=== PATIENT | female | born 1965 | race Caucasian/White ===

== ENCOUNTER 2025-07-12 10:31 | Day surgery (SDC) | payer MEDICAID, SELFPAY ==
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
--- OUTSIDE RECORDS SUMMARY | 2025-07-11 06:45 | XMS RPT_ITS | CCD ---
Author Organization [facility] Care Team Providers Care Wink Cutter Operator Name Role Phone SABINA GREGG, DR LOLY Castelan Primary Care Physician SABINA GREGG, DR LOLY Castelan Attending Unavail able SABINA GREGG, DR LOLY Castelan Primary Care Unavail able SABINA GREGG, DR LOLY Castelan Attending Unavail able SABINA GREGG, DR LOLY Castelan Primary Care Unavail able SABINA GREGG, DR LOLY Castelan Attending Unavail able SABINA GREGG, DR LOLY Castelan Primary Care Unavail able JOEY RODRIGUES, VERNA Holcomb Attending Unavailable JOEY RODRIGUES, VERNA Holcomb Primary Care Unavailable JOEY RODRIGUES, VERNA Holcomb Attending Unavailable JOEY RODRIGUES, VERNA Holcomb Primary Care Unavailable JOEY RODRIGUES, VERNA Holcomb Primary Care Physician JOEY RODRIGUES, VERNA Holcomb Primary Care Unavailable CB GREGG, DR LEIDA Parks Attending Unavailable JOEY RODRIGUES, VERNA Holcomb Primary Care Unavailable JOEY RODRIGUES, VERNA Holcomb Attending Unavailable Ammon Huertas Referring Unavailable Ammon Huertas Attending Unavailable LILLIAM LARSEN Primary Care Unavailable Allergies Allergy Classification Reported Allergen(s) Allergy Type Date of Onset Reaction(s) Facility (1 source) Cephalexin; Translations: [cephalexin] Drug Allergy Nausea (finding) [facility] (1 source) moxifloxacin; Translations: [moxifloxacin] Drug Allergy Nausea and vomiting (disorder) [facility] (1 source) Cephalexin Drug Allergy 5 [facility] (1 source) moxifloxacin Drug Allergy 5 [facility] Medications Current Medications Medication Drug Class(es) Dates Sig (Normalized) Sig (Original) irbesartan 75 mg oral tablet (1 source) Angiotensin 2 Receptor Griselda Start: 04-18-2025 irbesartan 75 mg oral tablet Dose : 75 mg = 1 tab(s), Oral, qDay, # 90 tab(s), 2 Refill(s), Pharmacy: [facility] #30, kg, 11/01/24 11:34:00 EST, Dosing Weight Start Date: 04/18/25 Status: Ordered Medication Dispense Status: Completed Quantity: 90.0 Unit: tab(s) Total Allowed Fills: 3 Fills Dispensed: 0 Magnesium glycinate (1 source) Start: 04-17-2025 magnesium glycinate 200 mg oral tablet Dose : 200 mg = 1 tab(s), Oral, qDayPC, # 180 tab(s), 0 Refill(s) Start Date: 04/17/25 Status: Ordered Medication Dispense Status: Completed Quantity: 180.0 Unit: tab(s) Total Allowed Fills: 1 Fills Dispensed: 0 Misc Medication (1 source) Start: 04-17-2025 Misc Medication 0 Refill(s), 99 Start Date: 04/17/25 Status: Ordered Medication Dispense Status: Completed Total Allowed Fills: 1 Fills Dispensed: 0 Vitamin C 1000 mg oral tablet (1 source) Start: 04-17-2025 Vitamin C 1000 mg oral tablet Dose : 1,000 mg = 1 tab(s), Oral, qDay, # 30 tab(s), 0 Refill(s) Start Date: 04/17/25 Status: Ordered Medication Dispense Status: Completed Quantity: 30.0 Unit: tab(s) Total Allowed Fills: 1 Fills Dispensed: 0 Vitamin D3 50 mcg (2000 intl units) oral capsule (1 source) Start: 04-17-2025 Vitamin D3 50 mcg (2000 intl units) oral capsule Dose : 50 mcg = 1 cap(s), Oral, qDay, # 60 cap(s), 0 Refill(s) Start Date: 04/17/25 Status: Ordered Medication Dispense Status: Completed Quantity: 60.0 Unit: cap(s) Total Allowed Fills: 1 Fills Dispensed: 0 Problems Problem Classification Problem Date Documented Date Episodic/Chronic Esophageal disorders (1 source) Gastroesophageal reflux disease without esophagitis 04-17-2025 Chronic Essential hypertension (3 sources) Essential hypertension; Translations: [Essential (primary) hypertension] Onset: 04-17-2025 04-17-2025 Chronic Fracture of lower limb (2 sources) Closed fracture of shaft of fibula; Translations: [Unspecified fracture of shaft of unspecified fibula, initial encounter for closed fracture] Onset: 07-03-2025 Episodic Other aftercare (2 sources) 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; 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] Onset: 04-05-2024 Episodic Other non-traumatic joint disorders (1 source) Disorder of hand 04-17-2025 Episodic Other screening for suspected conditions (not mental disorders or infectious disease) (6 sources) Encounter for screening for lipoid disorders; Translations: [Encounter for screening for diabetes mellitus] Onset: 04-05-2024 Episodic Other upper respiratory disease (1 source) Seasonal allergy 04-17-2025 Chronic Unclassified (5 sources) Patient encounter status 04-17-2025 Results Test Name Value Interpretation Reference Range Facil ity XR ANKLE MINIMUM 3 VIEWS RIG HTon 07-03-2025 XR ANKLE MINIMUM 3 VIEWS RIGHT ORIGINAL HISTORY: Pain COMPARISON: No FINDINGS: There is a mildly displaced fracture of the distal fibula. Alignment is within normal limits. Joint spaces are maintained. There is lateral soft tissue swelling. IMPRESSION: Distal fibula fracture. Interpreted by: Stevo Gonsalez MD Preliminary Report By: Stevo Gonsalez MD Electronically signed By Stevo Gonsalez MD Dictated Date: 07/03/2025 11:03:18 AM Prelim Date: 07/03/2025 11:03:54 AM Sign Date: 07/03/2025 11:03:54 AM Ordering Provider: LEIDA Figueredo [facility] MA MAMMOGRAM SCREENING BILAT ERAL W/TOMOon 06-12-2025 MA MAMMOGRAM SCREENING BILATERAL W/MICHELLE ORIGINAL FROM: [address] [address] PROCEDURE FOR: NATACHA CADE [address] [place] [address] Home: PID#: [id number] Exam#: [id number] : 1965 Age: 60 TO: VERNA COOK M.D. [address] [place] [address] EXAMINATION: SCREENING DIGITAL BILATERAL MAMMOGRAM WITH TOMOSYNTHESIS, 06/12/2025 8:55 am TECHNIQUE: Screening mammography of the bilateral breasts was performed with tomosynthesis. 2D standard and 3D tomosynthesis combination imaging performed through both breasts in the MLO and CC projection. Computer aided detection was utilized in the interpretation of this exam. COMPARISON: 05/01/2024 HISTORY: Breast cancer screening. FINDINGS: BREAST DENSITY: The breasts are almost entirely fatty. There are no significant masses or calcifications. IMPRESSION: No mammographic evidence of malignancy. Continued screening with annual mammograms is recommended. Melvin zick risk calculations, generated with the history provided, report this patient's 10 year risk and lifetime risk for developing breast cancer at 2.1% and 5.9%, respectively. Based on this assessment tool, if the patient's calculated lifetime risk is below 20%, then the patient is considered at average risk for developing breast cancer. If the patient's calculated lifetime risk is at or above 20%, then the patient is considered high risk for developing breast cancer and may be a candidate for supplemental breast MRI screening in addition to annual mammographic screening per the [employer]. BIRADS: BI-RADS: 1: Negative RECALL: 1 year screening RECALL TYPE: mammo LETTER SENT: Normal BI-RADS 1 and 2 Interpreted by: Loly Phelps MD Preliminary Report By: Loly Phelps MD Electronically signed By Loly Phelps MD Dictated Date: 06/12/2025 2:59:01 PM Prelim Date: 06/12/2025 3:00:44 PM Sign Date: 06/12/2025 3:00:44 PM Ordering Provider: VERNA COOK Negotiator Sales: TARIQ BILLS(R)(M) letter sent: Normal BI-RADS 1 and 2 Mammogram BI-RADS: 1 Negative Normal [facility] .Auto Diffon 04-17-2025 Basophil, Absolute 0.0 10 3/mcL Normal 0.0-0.3 [facility] Comment on above: Performed By: #### C BC, A1C, CMP, ADIFF, ANEU, LIPID, GFR #### [address] [address] Basophils/100 WBC (Bld) 0.8 % Normal 0.0-2.5 [facility] Comment on above: Performed By: #### C BC, A1C, CMP, ADIFF, ANEU, LIPID, GFR #### [address] [address] Eosinophil, Absolute 0.1 10 3/mcL Normal 0.0-0.7 [facility] Comment on above: Performed By: #### C BC, A1C, CMP, ADIFF, ANEU, LIPID, GFR #### [address] [address] Eosinophils/100 WBC (Bld) 1.5 % Normal 0.0-6.0 [facility] Comment on above: Performed By: #### C BC, A1C, CMP, ADIFF, ANEU, LIPID, GFR #### [address] [address] Lymphocyte, Absolute 1.8 10 3/mcL Normal 0.9-4.3 [facility] Comment on above: Performed By: #### C BC, A1C, CMP, ADIFF, ANEU, LIPID, GFR #### [address] [address] Lymphocytes/100 WBC (Bld) 30.9 % Normal 20.0-40.0 [facility] Comment on above: Performed By: #### C BC, A1C, CMP, ADIFF, ANEU, LIPID, GFR #### [address] [address] Monocyte, Absolute 0.4 10 3/mcL Normal 0.1-1.4 [facility] Comment on above: Performed By: #### C BC, A1C, CMP, ADIFF, ANEU, LIPID, GFR #### [address] [address] Monocytes/100 WBC (Bld) 7.1 % Normal 2.0-13.0 [facility] Comment on above: Performed By: #### C BC, A1C, CMP, ADIFF, ANEU, LIPID, GFR #### [address] [address] Neutrophils/100 WBC (Bld) 59.7 % Normal 50.0-75.0 [facility] Comment on above: Performed By: #### C BC, A1C, CMP, ADIFF, ANEU, LIPID, GFR #### [place] [address] [place], [place] [address] .GFRon 04-17-2025 Estimated Glomerular Filtration Rate 102 ml/min/1.73sqm Normal [facility] Comment on above: Result Comment: Stages of Chronic Kidney Disease (CKD) Stage Description eGFR(ml/min/1.73 sq.m.) CKD 1 Normal kidney function or >=90 normal kindney function with possible kidney damage (ex. Proteinuria) CKD 2 Kidney damage with mild loss 60-89 of kidney function CKD 3a Mild to moderate loss of kidney 45-59 function CKD 3b Moderate to severe loss of 30-44 of kindey function CKD 4 Severe loss of kidney function 15-29 CKD 5 Kidney failure <15 Note: (go live 2024) the eGFR calculation was updated to the 2020 CKD-EPI creatinine equation without a race factor to calculate the eGFR results. Performed By: #### C BC, A1C, CMP, ADIFF, ANEU, LIPID, GFR #### [address] [address] .NEUABSon 04-17-2025 Neutrophil, Absolute 3.4 10 3/mcL Normal 2.3-8.1 [facility] Comment on above: Performed By: #### C BC, A1C, CMP, ADIFF, ANEU, LIPID, GFR #### [address] [address] A1Con 04-17-2025 Glucose [Mass/Vol] 103 mg/dL Normal [facility] Comment on above: Result Comment: Lelea mated Average Glucose calculated by equation ((28.7xA1C)-46.7) Estimated average glucose (eAG) is a calculated value from Hemoglobin A1C and is tour sales representative of the average blood glucose level in the last 2-3 month period. Normal range: less than 114 mg/dL Performed By: #### C BC, A1C, CMP, ADIFF, ANEU, LIPID, GFR #### [address] [address] HbA1c (Bld) [Mass fraction] 5.2 % Normal 4.3-6.4 [facility] Comment on above: Performed By: #### C BC, A1C, CMP, ADIFF, ANEU, LIPID, GFR #### [address] [address] CBCon 04-17-2025 Erythrocyte distribution width (RBC) [Ratio] 13.5 % Normal 11.5-15.5 [facility] Comment on above: Performed By: #### C BC, A1C, CMP, ADIFF, ANEU, LIPID, GFR #### [place] [id number] Hematocrit (Bld) [Volume fraction] 44.4 % Normal 34.0-46.0 [facility] Comment on above: Performed By: #### C BC, A1C, CMP, ADIFF, ANEU, LIPID, GFR #### [address] [address] Hgb 15.1 G/dL Normal 12.0-16.0 [facility] Comment on above: Performed By: #### C BC, A1C, CMP, ADIFF, ANEU, LIPID, GFR #### [address] [address] MCH (RBC) [Entitic mass] 30.7 pg Normal 27.0-33.0 [facility] Comment on above: Performed By: #### C BC, A1C, CMP, ADIFF, ANEU, LIPID, GFR #### [address] [address] MCHC 34.0 G/dL Normal 32.0-36.0 [facility] Comment on above: Performed By: #### C BC, A1C, CMP, ADIFF, ANEU, LIPID, GFR #### [address] [address] MCV (RBC) [Entitic vol] 90.2 fL Normal 80.0-99.0 [facility] Comment on above: Performed By: #### C BC, A1C, CMP, ADIFF, ANEU, LIPID, GFR #### [address] [address] Platelet 290 10 3/mcL Normal 150-450 [facility] Comment on above: Performed By: #### C BC, A1C, CMP, ADIFF, ANEU, LIPID, GFR #### [address] [address] Platelet mean volume (Bld) [Entitic vol] 7.0 fL Normal 6.6-10.5 [facility] Comment on above: Performed By: #### C BC, A1C, CMP, ADIFF, ANEU, LIPID, GFR #### [address] [address] RBC 4.92 10 6/mcL Normal 4.10-5.30 [facility] Comment on above: Performed By: #### C BC, A1C, CMP, ADIFF, ANEU, LIPID, GFR #### [address] [address] WBC 5.8 10 3/mcL Normal 4.5-10.8 [facility] Comment on above: Performed By: #### C BC, A1C, CMP, ADIFF, ANEU, LIPID, GFR #### [address] [address] CMPon 04-17-2025 Albumin Level 4.1 G/dL Normal 3.5-5.0 [facility] Comment on above: Performed By: #### C BC, A1C, CMP, ADIFF, ANEU, LIPID, GFR #### [address] [address] Albumin/Globulin [Mass ratio] 1.1 {ratio} Normal 1.1-2.5 [facility] Comment on above: Performed By: #### C BC, A1C, CMP, ADIFF, ANEU, LIPID, GFR #### [address] [address] ALP [Catalytic activity/Vol] 83 U/L Normal 40-135 [facility] Comment on above: Performed By: #### C BC, A1C, CMP, ADIFF, ANEU, LIPID, GFR #### [address] [address] ALT [Catalytic activity/Vol] 29 U/L Normal 14-59 [facility] Comment on above: Performed By: #### C BC, A1C, CMP, ADIFF, ANEU, LIPID, GFR #### [address] [address] AST [Catalytic activity/Vol] 18 U/L Normal 10-40 [facility] Comment on above: Performed By: #### C BC, A1C, CMP, ADIFF, ANEU, LIPID, GFR #### [address] [address] Bili Total 0.8 mg/dL Normal 0.2-1.0 [facility] Comment on above: Result Comment: Use of this assay is not recommended for patients undergoing treatment with eltrombopag due to the potential for falsely elevated results. Performed By: #### C BC, A1C, CMP, ADIFF, ANEU, LIPID, GFR #### [address] [address] BUN/Creatinine Ratio 19 ratio Normal 7-27 [facility] Comment on above: Performed By: #### C BC, A1C, CMP, ADIFF, ANEU, LIPID, GFR #### [address] [address] Calcium [Mass/Vol] 9.5 mg/dL Normal 8.4-10.2 [facility] Comment on above: Performed By: #### C BC, A1C, CMP, ADIFF, ANEU, LIPID, GFR #### [address] [address] Chloride [Moles/Vol] 103 mmol/L Normal 98-107 [facility] Comment on above: Performed By: #### C BC, A1C, CMP, ADIFF, ANEU, LIPID, GFR #### [address] [address] CO2 [Moles/Vol] 26 mmol/L Normal 22-29 [facility] Comment on above: Performed By: #### C BC, A1C, CMP, ADIFF, ANEU, LIPID, GFR #### [address] [address] Creatinine [Mass/Vol] 0.67 mg/dL Normal 0.51-0.95 [facility] Comment on above: Performed By: #### C BC, A1C, CMP, ADIFF, ANEU, LIPID, GFR #### [address] [address] Electrolyte Balance 12.0 mEq/L Normal 4.0-15.0 [facility] Comment on above: Performed By: #### C BC, A1C, CMP, ADIFF, ANEU, LIPID, GFR #### [address] [address] Globulin 3.7 G/dL Normal 2.7-4.4 [facility] Comment on above: Performed By: #### C BC, A1C, CMP, ADIFF, ANEU, LIPID, GFR #### [address] [address] Glucose [Mass/Vol] 92 mg/dL Normal 70-105 [facility] Comment on above: Performed By: #### C BC, A1C, CMP, ADIFF, ANEU, LIPID, GFR #### [address] [address] Potassium [Moles/Vol] 3.7 mmol/L Normal 3.5-5.1 [facility] Comment on above: Performed By: #### C BC, A1C, CMP, ADIFF, ANEU, LIPID, GFR #### [address] [address] Sodium [Moles/Vol] 141 mmol/L Normal 136-145 [facility] Comment on above: Performed By: #### C BC, A1C, CMP, ADIFF, ANEU, LIPID, GFR #### [address] [address] Total Protein 7.8 G/dL Normal 6.4-8.2 [facility] Comment on above: Performed By: #### C BC, A1C, CMP, ADIFF, ANEU, LIPID, GFR #### [address] [address] Urea nitrogen [Mass/Vol] 13 mg/dL Normal 7-18 [facility] Comment on above: Performed By: #### C BC, A1C, CMP, ADIFF, ANEU, LIPID, GFR #### [address] [address] LIPIDon 04-17-2025 Cholesterol [Mass/Vol] 190 mg/dL Normal 0-200 [facility] Comment on above: Result Comment: Chol esterol Reference Interval: Less than 200 Desirable 200-239 Borderline high risk 240 and above High risk Performed By: #### C BC, A1C, CMP, ADIFF, ANEU, LIPID, GFR #### [address] [address] Cholesterol in HDL [Mass/Vol] 56 mg/dL Normal 40-60 [facility] Comment on above: Performed By: #### C BC, A1C, CMP, ADIFF, ANEU, LIPID, GFR #### [address] [address] Cholesterol in LDL [Mass/Vol] 113 mg/dL Normal 0-130 [facility] Comment on above: Performed By: #### C BC, A1C, CMP, ADIFF, ANEU, LIPID, GFR #### [address] [address] Triglyceride [Mass/Vol] 106 mg/dL Normal 0-150 [facility] Comment on above: Result Comment: Trig lyceride Reference Interval: Less than 150 Normal 150-199 Borderline high risk 200-499 High risk 500 or higher Very high risk Performed By: #### C BC, A1C, CMP, ADIFF, ANEU, LIPID, GFR #### [address] [address] MA MAMMOGRAM SCREENING BILAT ERAL W/TOMOon 05-08-2024 MA MAMMOGRAM SCREENING BILATERAL W/MICHELLE ORIGINAL FROM: [place] [id number] PROCEDURE FOR: NATACHA CADE [address] [place] [address] Home: PID#: [id number] Exam#: [id number] : 1965 Age: 58 TO: LOLY MUHAMMAD DO [address] [place], [place] [address] EXAMINATION: SCREENING DIGITAL BILATERAL MAMMOGRAM WITH TOMOSYNTHESIS, 05/01/2024 9:43 am TECHNIQUE: Screening mammography of the bilateral breasts was performed with tomosynthesis. 2D standard and 3D tomosynthesis combination imaging performed through both breasts in the MLO and CC projection. Computer aided detection was utilized in the interpretation of this exam. COMPARISON: April 16, 2021, June 20, 2019 HISTORY: Breast cancer screening. FINDINGS: BREAST DENSITY: The breasts are almost entirely fatty. There is no suspicious mass, architectural distortion or microcalcification. Fibroglandular pattern is stable. IMPRESSION: No mammographic evidence of malignancy. Continued screening with annual mammograms is recommended. Tyrseth zick risk calculations, generated with the history provided, report this patient's 10 year risk and lifetime risk for developing breast cancer at 1.8% and 5.6%, respectively. Based on this assessment tool, if the patient's calculated lifetime risk is below 20%, then the patient is considered at average risk for developing breast cancer. If the patient's calculated lifetime risk is at or above 20%, then the patient is considered high risk for developing breast cancer and may be a candidate for supplemental breast MRI screening in addition to annual mammographic screening per the [employer]. BIRADS: MAMMOGRAM BI-RADS: 1: Negative RECALL: 1 year screening RECALL TYPE: mammo LETTER SENT: Normal BI-RADS 1 and 2 Interpreted by: Sepideh Vann Preliminary Report By: Sepideh Vann Electronically signed By Sepideh Vann Dictated Date: 05/08/2024 12:58:53 PM Prelim Date: 05/08/2024 1:06:21 PM Sign Date: 05/08/2024 1:06:21 PM Ordering Provider: LOLY MUHAMMAD Negotiator Sales: TARIQ BILLS(Ramon)(M) letter sent: Normal BI-RADS 1 and 2 Mammogram BI-RADS: 1 Negative Normal [facility] [place] .GFRon 04-05-2024 GFR 116 ml/min/1.73sqm Normal [facility] ([place] Comment on above: Result Comment: GFR Population mean for , Non- Americans Ages 20-29 = 116 mL/min/1.73 sq.m. Ages 30-39 = 107 mL/min/1.73 sq.m. Ages 40-49 = 99 mL/min/1.73 sq.m. Ages 50-59 = 93 mL/min/1.73 sq.m. Ages 60-69 = 85 mL/min/1.73 sq.m. Ages 70+ = 75 mL/min/1.73 sq.m. Chronic Kidney Disease: Less than 60 mL/min/1.73 square meters End Stage Renal Disease: Less than 15 mL/min/1.73 square meters Performed By: #### G FR, LIPID, CMP #### [address] [address] GFR Non- 96 ml/min/1.73sqm Normal [facility] ([place] Comment on above: Result Comment: GFR Population mean for , Non- Americans Ages 20-29 = 116 mL/min/1.73 sq.m. Ages 30-39 = 107 mL/min/1.73 sq.m. Ages 40-49 = 99 mL/min/1.73 sq.m. Ages 50-59 = 93 mL/min/1.73 sq.m. Ages 60-69 = 85 mL/min/1.73 sq.m. Ages 70+ = 75 mL/min/1.73 sq.m. Chronic Kidney Disease: Less than 60 mL/min/1.73 square meters End Stage Renal Disease: Less than 15 mL/min/1.73 square meters Performed By: #### G FR, LIPID, CMP #### [address] [address] CMPon 04-05-2024 Albumin Level 4.4 G/dL Normal 3.5-5.0 [facility] ([place]) Comment on above: Performed By: #### G FR, LIPID, CMP #### [address] [address] Albumin/Globulin [Mass ratio] 1.3 {ratio} Normal 1.1-2.5 [facility] ([place] Comment on above: Performed By: #### G FR, LIPID, CMP #### [address] [address] ALP [Catalytic activity/Vol] 81 U/L Normal 40-135 [facility] ([place] Comment on above: Performed By: #### G FR, LIPID, CMP #### [place] [id number] ALT [Catalytic activity/Vol] 29 U/L Normal 14-59 [facility] ([place] Comment on above: Performed By: #### G FR, LIPID, CMP #### [place] [id number] AST [Catalytic activity/Vol] 12 U/L Normal 10-40 [facility] ([place] Comment on above: Performed By: #### G FR, LIPID, CMP #### [place] [id number] Bili Total 0.7 mg/dL Normal 0.2-1.0 [facility] ([place] Comment on above: Result Comment: Use of this assay is not recommended for patients undergoing treatment with eltrombopag due to the potential for falsely elevated results. Performed By: #### G FR, LIPID, CMP #### [address] [address] BUN/Creatinine Ratio 23 ratio Normal 7-27 [facility] ([place] Comment on above: Performed By: #### G FR, LIPID, CMP #### [address] [address] Calcium [Mass/Vol] 9.7 mg/dL Normal 8.4-10.2 [facility] ([place]) Comment on above: Performed By: #### G FR, LIPID, CMP #### [place] [id number] Chloride [Moles/Vol] 101 mmol/L Normal 98-107 [facility] ([place] Comment on above: Performed By: #### G FR, LIPID, CMP #### [address] [address] Creatinine [Mass/Vol] 0.64 mg/dL Normal 0.55-1.02 [facility] ([place] Comment on above: Performed By: #### G FR, LIPID, CMP #### [address] [address] Electrolyte Balance 11.0 mEq/L Normal 4.0-15.0 [facility] ([place] Comment on above: Performed By: #### G FR, LIPID, CMP #### [address] [address] Globulin 3.3 G/dL Normal [facility] ([place] Comment on above: Performed By: #### G FR, LIPID, CMP #### [address] [address] Glucose [Mass/Vol] 100 mg/dL Normal 70-105 [facility] ([place] Comment on above: Performed By: #### G FR, LIPID, CMP #### [address] [address] Potassium [Moles/Vol] 4.2 mmol/L Normal 3.5-5.1 [facility] ([place] Comment on above: Performed By: #### G FR, LIPID, CMP #### [address] [address] Sodium [Moles/Vol] 140 mmol/L Normal 136-145 [facility] ([place] Comment on above: Performed By: #### G FR, LIPID, CMP #### [address] [address] Total Protein 7.7 G/dL Normal 6.4-8.2 [facility] ([place] Comment on above: Performed By: #### G FR, LIPID, CMP #### [address] [address] Urea nitrogen [Mass/Vol] 15 mg/dL Normal 7-18 [facility] ([place] Comment on above: Performed By: #### G FR, LIPID, CMP #### [address] [place] [place], [place] [address] CO2 [Moles/Vol] 28 mmol/L Normal 22-29 [facility] ([place]) Comment on above: Performed By: #### G FR, LIPID, CMP #### [address] [place] [address] [place], [place] [address] LIPIDon 04-05-2024 Cholesterol [Mass/Vol] 228 mg/dL High 0-200 [facility] ([place] Comment on above: Result Comment: Chol esterol Reference Interval: Less than 200 Desirable 200-239 Borderline high risk 240 and above High risk Performed By: #### G FR, LIPID, CMP #### [address] [address] Cholesterol in HDL [Mass/Vol] 62 mg/dL High 40-60 [facility] ([place] Comment on above: Performed By: #### G FR, LIPID, CMP #### [address] [address] Cholesterol in LDL [Mass/Vol] 139 mg/dL High 0-130 [facility] ([place] Comment on above: Performed By: #### G FR, LIPID, CMP #### [address] [address] Triglyceride [Mass/Vol] 135 mg/dL Normal 0-150 [facility] ([place] Comment on above: Result Comment: Trig lyceride Reference Interval: Less than 150 Normal 150-199 Borderline high risk 200-499 High risk 500 or higher Very high risk Performed By: #### G FR, LIPID, CMP #### [address] [place], [place] [address] SCREEN DIGITAL BREAST TOMOon 04-16-2021 SCREEN DIGITAL BREAST MICHELLE [address] [address] Name: NATACHA CADE Phys: LOLY MUHAMMAD D.O. : [birth year] Age: 55 Sex: F Acct: [id number] Loc: RAD MAMM Exam Date: 04/16/21 Status: REG CLI Radiology No.: [id number] Unit Number: [id number] Exam # Type/Exam [id number] MAMMO / SCREEN DIGITAL BREAST MICHELLE #[id number] - SCREEN DIGITAL BREAST MICHELLE BILATERAL DIGITAL SCREENING MAMMOGRAM 3D/2D WITH CAD: 04/16/2021 CLINICAL: Annual Screening. Comparison is made to exam dated: 06/20/2019 mammogram - [facility] [place]. The tissue of both breasts is predominantly fatty. Current study was also evaluated with a Computer Aided Detection (CAD) system. 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 No significant masses, calcifications, or other findings are seen in either breast. There has been no significant interval change. IMPRESSION: NEGATIVE There is no mammographic evidence of malignancy. A 1 year return mammogram is recommended.() The patient was notified of the results. Electronically signed by: Mike ding/beatriz:04/16/2021 15:13:59 Negotiator Sales(s): RT Angelica(R)(M), [facility] BI-RADS: 1 Negative REPORT SIGNATURE ON FILE Reported By: MIKE JOHNSTON D.O. << Signature on File>> Reported By: MIKE JOHNSTON D.O. Signed By: MIKE JOHNSTON D.O. Tests performed at: [address] [address] Normal Pending Sale To [facility] CBC W/DIFFon 03-31-2021 BASO ABS 0.10 K/CU MM Normal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 Instructions Last Dose Unchanged ascorbic acid (Vitamin C 1000 mg oral tablet) 1 tab(s) by mouth Once a day Unchanged cholecalciferol (Vitamin D3 50 mcg (2000 intl units) oral capsule) 1 cap by mouth Once a day Unchanged irbesartan (irbesartan 75 mg oral tablet) 1 tab(s) by mouth Once a day Unchanged magnesium glycinate (magnesium glycinate 200 mg oral tablet) 1 tab(s) by mouth Once a day after a meal Unchanged Misc Medication Please take this list to your next doctor s visit. Bring all medications you take, including over the counter medications, herbals and other supplements with you to your doctor s visit. Patients and families are reminded to discard old lists and to update any records with all medication providers or retail pharmacies. Education Materials Leg Fracture You have a break (fracture) of the leg. A fracture is treated with a splint, cast, or special boot. It will usually take at about 8 to 12 weeks for the fracture to heal, but it can take several months in some cases. If you have a severe injury, you may need surgery to fix it. Home care Follow these guidelines when caring for yourself at home: You will be given a splint, cast, boot, or other device to keep the injured area from moving. Unless you were told otherwise, use crutches or a walker. Don t put weight on the injured leg until your healthcare provider says you can do so. (You can rent crutches and a walker at many pharmacies and surgical or orthopedic supply stores.) Keep your leg elevated to reduce pain and swelling. When sleeping, put a pillow under the injured leg. When sitting, support the injured leg so it is above your waist. This is very important during the first 2 days (48 hours). Put an ice pack on the injured area. Do this for 20 minutes every 1 to 2 hours the first day for pain relief. You can make an ice pack by wrapping a plastic bag of ice cubes in a thin towel. As the ice melts, be careful that the cast, splint, or boot doesn t get wet. You can put the ice pack directly over the splint or cast. Continue using the ice pack 3 to 4 times a day for the next 2 days. Then use the ice pack as needed to ease pain and swelling. Keep the cast, splint, or boot completely dry at all times. Bathe with your cast, splint, or boot out of the water. Protect it with a large plastic bag, rubber-banded at the top end. If a boot or fiberglass cast or splint gets wet, you can dry it with a nursing program chair. You may use acetaminophen or ibuprofen to control pain, unless another pain medicine was prescribed. If you have chronic liver or kidney disease, talk with your healthcare provider before using these medicines. Also talk with your provider if you ve had a stomach ulcer or gastrointestinal bleeding. Don t put creams or objects under the cast if you have itching. Follow-up care Follow up with your healthcare provider, or as advised. This is to make sure the bone is healing the way it should. If a splint was put on, it may be converted to a cast at your next visit. X-rays may be taken. You will be told of any new findings that may affect your care. When to seek medical advice Call your healthcare provider right away if any of these occur: The cast or splint cracks The plaster cast or splint becomes wet or soft The fiberglass cast or splint stays wet for more than 24 hours Bad odor from the cast or wound fluid stains the cast Tightness or pain under the cast or splint gets worse Toes become swollen, cold, blue, numb, or tingly You can t move your toes Skin around cast or splint becomes red Fever of 100.4 F (38 C) or higher, or as directed by your healthcare provider [id number] [employer]. [address] [place] [address]. All rights reserved. This information is not intended as a substitute for professional medical care. Always follow your healthcare professional's instructions. Additional Information VACCINATE! IT SAVES LIVES! Members of the community who have not yet received the COVID-19 vaccine and would like to receive it can visit one of [facility] vaccine clinics. There are many vaccine clinic locations within the [facility]. For locations and available times, please visit www.gettheshot.coronavirus.[place].gov/. It is important to note that some COVID mobile vaccine clinics are held outdoors and may be canceled in rainy or stormy conditions. To learn more about pediatric vaccinations (ages 5-11), we invite you to visit the [facility] webpage. [email or web address].[facility].org/pages/2 389-Lolfb-Hpqpudibbyp-Frequently-Asked -Questions.html To learn more about the COVID-19 vaccine, we invite you to visit the CDC website for a list of frequently asked questions. https://www.cdc.gov/coronavirus/2019-n cov/vaccines/faq.html [facility] Patient Portal Access Instructions: Stay connected with your healthcare team and access your personal medical information anytime with the [email or web address] Patient Portal. If you would like a full copy of your medical records please contact the [facility] Medical Records Department Tuesday through Tuesday between 8a.m. and 4:30p.m. Please follow the directions below to access the portal: 1.Access the email account you provided upon registration to the [facility].2.Look for an invitation email from [facility].3.Open the email and access the invitation link: Accept Invitation to [email or web address].Fill in the required gordon to create your account. To access your account, visit [email or web address] or scan the QR code above. Click the blue button labeled Access Patient Portal and then log in with the username and password that you created in the steps above. You can then view a summary of results, a summary of your visits, and the ability to download your summaries to your computer or send the information securely to a physician. Remember that your healthcare information is confidential, so carefully consider who you will allow to register on the [facility] Patient Portal for access to your information. You can also access the [facility] Patient Portal on the [facility] mayur. Simply click on Health Records under Health Data and then click on the [employer] logo. HOW TO SAFELY DISPOSE OF PRESCRIPTION MEDICATIONS Please use one of the following methods to safely dispose of your unused medications. 1.Use a drug disposal kit: the drug disposal pouch allows you to safely discard your old and unused drugs. Ask your nurse to give you one when you are discharged.2.Visit a local take-back location: Many local pharmacies and police departments have programs that collect old and unwanted prescription drugs. Call your local pharmacy or go to http://IGIGI.The Pyromaniac/3K6Ti4u to find one close to you.3.Make use of household items: Use cat litter or old coffee grounds to dispose medications if other options are not available. Mix your drugs with these household products, seal them in an airtight container and throw it into the garbage. Call [facility]: [phone] to be sure your drugs can be disposed of in this way. Some medicines may require a different approach.4.Never flush your medications down the toilet. IF YOU HAVE BEEN PRESCRIBED AN OPIOIDS FOR PAIN If you have been prescribed an opioid (such as hydrocodone, oxycodone or morphine), it is critical to understand the possible side effects and risks of opioid pain medications. Even when taken as directed, opioids can have several side effects including: Tolerance, meaning you might need to take more of a medication for the same pain relief. Nausea, vomiting and/or constipation. Sleepiness, dizziness, dry mouth, confusion, depression or itching. Physical dependence, meaning you have withdrawal symptoms when a medication is stopped ? this can develop within a few days. KNOW YOUR RESPONSIBILITIES It is important to know exactly how much and how often to take the opioid pain medications you are prescribed. Never take opioids in higher amounts or more often than prescribed. Do not combine opioids with alcohol or other drugs that cause drowsiness, such as benzodiazepines, also known as benzos, including diazepam and alprazolam, muscle relaxants or sleep aids. Never sell or share prescription opioids. This is illegal. Store opioids in a secure place and out of reach of others (including children, family, friends and visitors). The last page(s) of this document has been signed and retained as a CHART COPY Signatures Patient Education Materials Fracture, Lower Extremity Medication Leaflets My discharge plan and instructions have been reviewed and explained to me and I,NATACHA CADE understand my current condition and have read and understand these discharge instructions. I have received a written copy of the plan/instructions. If I have questions, I am aware that I should contact my doctor. Patient/Rink Rat Signature: _ Date/Time: Relationship to Patient: Witness Name/Signature: Date/Time: [facility] Clinical Note 07-03-2025 Note Date & Type Note Facility 07-03-2025 Note Exam Date Time Procedure Performing Provider Status 07/03/25 10:59 AM XR Ankle Minimum 3 Views Right STEVO GONSALEZ MD; Auth (Verified) [id number] ORIGINAL HISTORY: Pain COMPARISON: No FINDINGS: There is a mildly displaced fracture of the distal fibula. Alignment is within normal limits. Joint spaces are maintained. There is lateral soft tissue swelling. IMPRESSION: Distal fibula fracture. Interpreted by: Stevo Gonsalez MD Preliminary Report By: Steov Gonsalez MD Electronically signed By Stevo Gonsalez MD Dictated Date: 07/03/2025 11:03:18 AM Prelim Date: 07/03/2025 11:03:54 AM Sign Date: 07/03/2025 11:03:54 AM Ordering Provider: LEIDA VIVAR [facility] Evaluation + Plan note Note Date & Type Note Facility Evaluation + Plan note No data available for this section [facility] Evaluation + Plan note Note Date & Type Note Facility Evaluation + Plan note Future Appointments Appointment Date:04/18/2026 09:30:00 AM Scheduled Provider:VERNA COOK MD Location:[facility] [place] Appointment Type:PC [facility]ness Annual [facility] Hospital Discharge instructions Note Date & Type Note Facility Hospital Discharge instructions No data available for this section [facility] Progress note Note Date & Type Note Facility Progress note No data available for this section [facility] Summary Purpose Family History No Family History Records FoundNo Family History Records FoundNo Family History Records FoundNo Family History Records FoundNo Family History Records Found No data available for this section No Family History Records FoundNo Family History Records Found Advance Directives No Advanced Directives Records FoundNo Advanced Directives Records FoundNo Advanced Directives Records FoundNo Advanced Directives Records FoundNo Advanced Directives Records FoundNo Advanced Directives Records FoundNo Advanced Directives Records Found Additional Source Comments INFORMATION SOURCE (unrecogn ized section and content) DATE CREATED AUTHOR 08/20/2019 [facility] [place] [facility] DATE CREATED AUTHOR AUTHOR'S ORGANIZ ATION 04/09/2021 [facility] DATE CREATED AUTHOR AUTHOR'S ORGANIZ ATION 05/01/2021 [facility] DATE CREATED AUTHOR AUTHOR'S ORGANIZ ATION 05/11/2024 [facility] DATE CREATED AUTHOR AUTHOR'S ORGANIZ ATION 06/16/2025 [facility] DATE CREATED AUTHOR AUTHOR'S ORGANIZ ATION 07/07/2025 [facility] DATE CREATED AUTHOR AUTHOR'S ORGANIZ ATION 07/10/2025 [facility] Care Team (unrecognized sect ion and content) Personnel Name: LOLY MUHAMMAD DO Address: Address: [address] [place] [address] Patient Care team informatio n (unrecognized section and content) Care Team Personnel Name: VERNA COOK MD Position: P4 Physician - Primary Care Member Role: Primary Care Physician Address: [address] [place] [address] Telecom: Care Team Related Persons Name: LETHA TURNER FOR RECORDS PERTAINING TO PATIENTS WHO ARE OR HAVE BEEN ENROLLED IN A CHEMICAL DEPENDENCY/SUBSTANCEABUSE PROGRAM, SOME INFORMATION MAY BE OMITTED. This clinical summary was aggregated from multiple sources. Caution should be exercised in using it in the provision of clinical care. This summary normalizes information from multiple sources, and as a consequence, information in this document may materially change the coding, format and clinical context of patient data. In addition, data may be omitted in some cases. CLINICAL DECISIONS SHOULD BE BASED ON THE PRIMARY CLINICAL RECORDS. [facility]. provides no warranty or guarantee of the accuracy or completeness of information in this document.
--- NOTE | 2025-07-11 06:46 | EKG12_ITS ---
Test Reason : PREOP Blood Pressure : */* mmHG Vent. Rate : 88 BPM Atrial Rate : 88 BPM P-R Int : 154 ms QRS Dur : 74 ms QT Int : 346 ms P-R-T Axes : 5 -4 0 degrees QTcB Int : 418 ms Normal sinus rhythm Nonspecific T wave changes Abnormal ECG Confirmed by Elias Scott ([id number]), video editor SUSANA GONZALES ([id number]) on 07/12/2025 5:51:34 AM Referred By: Ammon Perez Confirmed By: Elias Scott
[2025-07-11 07:48] LABS: Hematocrit 42.0 % (37-47); Hemoglobin 14.5 g/dL (12.0-15.0); Immature Granulocytes Count 0.020 X10^3/uL (0.0-0.0); Mean Corp Hgb Conc 34.5 g/dL (32-36); Mean Corpuscular Volume 90.5 fL (81-99); Mean Platelet Vol. 8.4 fl (6.2-12.0); NRBC Flagged by Analyzer 0 % (0-5); Platelet Count 263 K/mm3 (150-450); RBC Distribution Width CV 13.5 % (11.6-14.6); RBC Distribution Width SD 44.9 fl (35.1-43.9); Red Blood Count 4.64 M/mm3 (4.2-5.4); White Blood Count 6.0 K/mm3 (4.4-11.0)
[2025-07-11 08:43] LABS: Anion Gap 13 (5-15); BUN 16 mg/dL (4-19); BUN/Creat Ratio 23.4 RATIO (10-20); Calcium,Total 9.5 mg/dL (7.6-11.0); Carbon Dioxide 22.7 mmol/L (21.0-32.0); Chloride 105 mmol/L (98-108); Glucose 112 mg/dL (70-99); Potassium 4.0 mmol/L (3.3-5.1)
--- NOTE | 2025-07-11 14:48 | PAT.ANE_ITS ---
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 When Was Last Pacemaker Check QUESTION #4 FULL TEXT: You/Your Family Experience fever (hyperthermia) with Anesthesia Last Oral Intake Last Oral intake: Last Oral Intake NPO since Meds taken in AM with sips of water? Meds patient instructed to take am of surgery PONV PONV - water manager: PONV - water manager Female Yes 07/09/25 14:18 HX of Motion Sickness No 07/09/25 14:18 HX of N/V After Surgery No 07/09/25 14:18 Non-Smoker Yes 07/09/25 14:18 Duration of Surgery greater Yes 07/09/25 14:18 than 60 minutes Number of Risk Factors 3 07/09/25 14:18 PONV Score Moderate Risk 07/09/25 14:18 Respiratory Assessment Respiratory Assessment - water manager: Respiratory Tract Infection Hx - water manager Hx Respiratory Tract Infection No 07/09/25 14:18 STOP Sleep Apnea STOP Sleep Apnea - water manager: STOP Sleep Apnea - water manager Hx Hypertension Yes: CONTROLLED WITH MEDS 07/09/25 14:18 Hx Sleep Apnea No 07/09/25 14:18 CPAP BIPAP Do you snore loudly (louder No 07/09/25 14:18 than talking or can be heard Do you often feel tired/ No 07/09/25 14:18 fatigued/ sleepy during daytime? Has anyone observed you stop No 07/09/25 14:18 breathing during sleep? STOP Results Negative 07/09/25 14:18 QUESTION #5 FULL TEXT : Do you snore loudly (louder than talking or can be heard through closed doors)? 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 Specify any problems Hx of Preganancy in last 3 No 07/09/25 14:18 Months Nurse Filling Out Transfusion [email or web address] 07/09/25 14:18 & Questions: Date: 07/09/25 07/09/25 14:18 Time: 14:22 07/09/25 14:18 Patient unable to answer at this time (ie. confused, unrespo /Reproduction History /Reproductive History - water manager: /Reproductive Hx- water manager Hx Now Gestational Age (in weeks): EDC: Hx Hx Para Hx Section SAB Active Medications Active Medications: Current Medications Generic Name Dose Route Start Last Admin Trade Name Freq PRN Reason Stop Dose Admin Cefazolin Sodium 2 gm/ Sodium 110 mls @ 200 mls/hr 07/12/25 12:30 Chloride IV 07/12/25 13:02 INTRAOP ONE [facility] Medical History (Updated 07/09/25 @ 14:27 by Franky Hayden) Anxiety Alcohol use Arthritis Injury of head and neck Migraine headache Gastric reflux Home Medications ?Medication ?Instructions ?Recorded ?Last Taken ?Type ascorbic acid (vitamin C) 500 mg 500 mg PO QDAY Unknown History chewable tablet (Acerola C) cholecalciferol (vitamin D3) 25 25 mcg PO DAILY Unknown History mcg (1,000 unit) capsule (Vitamin D3) irbesartan 75 mg tablet 75 mg PO DAILY 07/09/25 Unkn own History magnesium 250 mg tablet 250 mg PO DAILY 07/09/25 Unk nown History omeprazole 40 mg capsule,delayed 40 mg PO DAILY PRN GE RD 07/09/25 Unknown History release Allergy/AdvReac Type Severity Reaction Status Date / Time cephalexin (From Keflex) AdvReac ABDOMINAL Verified 07/09/25 14:15 PAIN moxifloxacin (From Avelox) AdvReac Vomiting Verified 07/09/25 14:15 Surgical History (Updated 07/09/25 @ 14:27 by Franky Hayden) H/O: hysterectomy H/O wrist surgery H/O eye surgery Social History Smoking Status: Former smoker Audit: Pertinent Findings Pertinent Findings EKG Perinent findings: 07/11/2025. Normal sinus rhythm. Inferior infarct, age undetermined. Recommendation Anesthesia Recommendation Anesthesia recommendation: OPTIMIZED for anesthesia
[2025-07-12] VITALS (10 sets, daily range): BP systolic 100–140; BP diastolic 52–85; PULSE 52–88; RESP 14–20; TEMP 36.1–36.6; O2SAT 92–100; BMI 38.0
[2025-07-12] MEDS: Lactated Ringers 1,000 ML 15 ML IV ×3 (10:59→14:49)
--- NOTE | 2025-07-12 11:13 | PCM.PRE.AN2 ---
ASA Classification* ASA Classification ASA Classification: 2 Assessment & Plan Anesthesia* Anesthesia Assessment Anesthesia Assessment: Discussed sedation and/or anesthesia options, risks, benefits, and alternatives with patient/parents/legal guardian/POA. Questions invited. The patient/parents/legal guardian/POA seems to understand and agrees to proceed with anesthesia plan. Reviewed the physical assessment, medical history, allergy history and patient home medications list prior to surgery/procedure/anesthetic and documented any changes. Performed airway and anesthesia risk assessments. Anesthesia Type Anesthesia Type: General and Block History Source History Obtained from:: Patient and Chart Anesthesia Focused Assessment* Temperature: 97.8 F Pulse Rate: 79 Blood Pressure: 138/71 Respiratory Rate: 16 Pulse Ox: 99 Oxygen Delivery Method: Room Air Airway Assessment Mouth opens: >3 cm Mallampati Score: II Teeth Condition: Missing Neck Range of motion (ROM): Full ROM Labs Anesthesia Preop lab: CBC WBC, (4.4-11.0) 6.0 K/mm3 07/11/25, 06:50 RBC, (4.2-5.4) 4.64 M/mm3 07/11/25, 06:50 Hgb, (12.0-15.0) 14.5 g/dL 07/11/25, 06:50 Hct, (37-47) 42.0 % 07/11/25, 06:50 Plt Count, (150-450) 263 K/mm3 07/11/25, 06:50 CHEMISTRY Potassium, (3.3-5.1) 4.0 mmol/L 07/11/25, 06:50 Sodium, (133-145) 140 mmol/L 07/11/25, 06:50 BUN, (4-19) 16 mg/dL 07/11/25, 06:50 Creatinine, (0.70-1.20) 0.69 mg/dL L 07/11/25, 06:50 Glucose, (70-99) 112 mg/dL H 07/11/25, 06:50 COAG Pre-Assessment Diagnosis/Proposed Procedure Planned Operative Procedure(s): RIGHT ANKLE OPEN REDUCTION INTERNAL FIZATION DISTAL FIBULA FRACTURE WITH POSSIBLE SYNDESMOSIS REPAIR Anesthesia History 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 When Was Last Pacemaker Check QUESTION #4 FULL TEXT: You/Your Family Experience fever (hyperthermia) with Anesthesia Last Oral Intake Last Oral intake: Last Oral Intake NPO since 06:00 07/12/25 10:53 Meds taken in AM with sips of Yes 07/12/25 10:53 water? Meds patient instructed to take am of surgery PONV PONV - outside sales manager: PONV - outside sales manager Female Yes 07/09/25 14:18 HX of Motion Sickness No 07/09/25 14:18 HX of N/V After Surgery No 07/09/25 14:18 Non-Smoker Yes 07/09/25 14:18 Duration of Surgery greater Yes 07/09/25 14:18 than 60 minutes Number of Risk Factors 3 07/09/25 14:18 PONV Score Moderate Risk 07/09/25 14:18 Height & Weight Height & Weight: Anesthesia: Height & Weight Height 5 ft 3 in 07/12/25 10:53 Weight: 97.522 kg 07/12/25 10:53 Body Mass Index (BMI) 38.0 07/12/25 10:53 Respiratory Assessment Respiratory Assessment - outside sales manager: Respiratory Tract Infection Hx - outside sales manager Hx Respiratory Tract Infection No 07/09/25 14:18 STOP Sleep Apnea STOP Sleep Apnea - outside sales manager: STOP Sleep Apnea - outside sales manager Hx Hypertension Yes: CONTROLLED WITH MEDS 07/09/25 14:18 Hx Sleep Apnea No 07/09/25 14:18 CPAP BIPAP Do you snore loudly (louder No 07/09/25 14:18 than talking or can be heard Do you often feel tired/ No 07/09/25 14:18 fatigued/ sleepy during daytime? Has anyone observed you stop No 07/09/25 14:18 breathing during sleep? STOP Results Negative 07/09/25 14:18 QUESTION #5 FULL TEXT : Do you snore loudly (louder than talking or can be heard through closed doors)? 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 Specify any problems Hx of Preganancy in last 3 No 07/09/25 14:18 Months Nurse Filling Out Transfusion [email or web address] 07/09/25 14:18 & Questions: Date: 07/09/25 07/09/25 14:18 Time: 14:22 07/09/25 14:18 Patient unable to answer at this time (ie. confused, unrespo /Reproduction History /Reproductive History - outside sales manager: /Reproductive Hx- outside sales manager Hx Now Gestational Age (in weeks): EDC: Hx Hx Para Hx Section SAB Active Medications Active Medications: Current Medications Generic Name Dose Route Start Last Admin Trade Name Freq PRN Reason Stop Dose Admin Cefazolin Sodium 2 gm/ Sodium 110 mls @ 200 mls/hr 07/12/25 12:30 Chloride IV 07/12/25 13:02 INTRAOP ONE Lactated Ringer's 1,000 mls @ 15 mls/hr 07/12/25 10:45 07/12/25 10:59 IV 15 mls/hr .Q48H MURPHY Administration PFSH Medical History Anxiety Alcohol use Arthritis Injury of head and neck Migraine headache Gastric reflux Home Medications ?Medication ?Instructions ?Recorded ?Last Taken ?Type ascorbic acid (vitamin C) 500 mg 500 mg PO QDAY 07/09/25 Unknown History chewable tablet (Acerola C) cholecalciferol (vitamin D3) 25 25 mcg PO DAILY 07/09/25 Unknown History mcg (1,000 unit) capsule (Vitamin D3) irbesartan 75 mg tablet 75 mg PO DAILY 07/09/25 07/12/25 06:30 History magnesium 250 mg tablet 250 mg PO DAILY 07/09/25 Unknown History omeprazole 40 mg capsule,delayed 40 mg PO DAILY PRN GERD 07/09/25 Unknown History release Allergy/AdvReac Type Severity Reaction Status Date / Time cephalexin (From Keflex) AdvReac ABDOMINAL Verified 07/12/25 10:52 PAIN moxifloxacin (From Avelox) AdvReac Vomiting Verified 07/12/25 10:52 Surgical History H/O: hysterectomy H/O wrist surgery H/O eye surgery Social History Smoking Status: Former smoker Review of Systems (Anesthesia) ROS Narrative System reviewed and no additional complaints, except as documented.
--- NOTE | 2025-07-12 11:30 | RAD_ITS ---
PROCEDURE: ANKLE 2 VIEWS 07/12/2025 REASON FOR EXAM: RT ANKLE ORIF TECHNIQUE: Procedure Code: RADANK2 Modality: DX Procedure: ANKLE 2 VIEWS Laterality: FINDINGS: Intraoperative fluoroscopy was performed. See procedure report for full details. 17.8 seconds of fluoroscopic time. 0.66 mGy. RAD/Ankle 2 Views IMPRESSION: As above. Reading Location: [id number]
[2025-07-12] MEDS: Midazolam 2 MG/2 ML Syringe IV (12:32)
[2025-07-12] MEDS: Cefazolin 1 GM/5 ML Vial 2 GM IV (12:35)
[2025-07-12] MEDS: Lidocaine 1% (5 ml sdv) 5 ML Vial IV (12:38)
[2025-07-12] MEDS: fentaNYL 100 MCG/2 ML Ampul IV (12:38)
--- NOTE | 2025-07-12 13:36 | PCM.OPRPT ---
Operative Report (Standard) Operative Information Date of Procedure: 07/12/25 Pre-Operative Diagnosis: Right ankle Lao B distal fibula fracture Post-Operative Diagnosis: Right ankle Lao B distal fibula fracture Surgery/Procedure Performed: Open reduction internal fixation right distal fibula fracture with stress examination syndesmosis under fluoroscopy safety instructor: Yes Manufacturing Industrial Engineer: Shaila Mina Tasks completed by purchasing assistant: Opening, Opening & closing, Implanting device, Retracting and Other (Splinting) Additional assistant professor of mathematics?: No Type of Anesthesia: General RN Documented Start/Stop Times: Operation Date: 07/12/25 12:30 Case Time Into Pre-Op 07/12/25 10:37 Out of Pre-Op 07/12/25 12:26 Anesthesia Start 07/12/25 12:31 Into Room 07/12/25 12:31 Procedure Start 07/12/25 12:57 Procedure Start Time: 12:57 Procedure Stop Time: 13:51 Select all DRAINS/GRAFTS/IMPLANTS that apply: Implanted device Implanted device details: [place] 6-hole locking distal fibula anatomic plate for the right fibula Special Medications: Ancef 2 g Estimated Blood Loss: 5 mL Fluids Replaced: 700 mL Specimen collected: No Description of surgery: On the day of the procedure patient's right ankle was marked in the preoperative area. Patient was seen and examined and all additional questions were answered. Patient and who is at bedside agreed to proceed and right ankle was marked as agreed upon extremity. Patient was then taken back to the operating room where anesthesia assumed controlled C-spine and airway. Patient was transferred to the operative table in the supine position and anesthesia administered anesthetic. Once patient was appropriate a size bump was placed underneath the right hip. Blankets underneath the right lower extremity was elevated for appropriate intraoperative radiographs. Once patient was appropriately positioned tourniquet was placed in the right upper thigh and the right lower extremity was prepped in sterile fashion while the surgeon scrubbed. Upon reentering the room the surgeon assistant professor of mathematics donned sterile gown and gloves and draped the patient in a sterile orthopedic fashion. Timeout was called and when agreed upon the side, the site, the procedure be performed, patient's identity and antibiotic given. Fibula was palpated and incision was marked out. Esmarch bandage was used to exsanguinate the extremity and tourniquet is placed at the 250 mmHg. Incision was taken down to skin with blunt dissection down to subcutaneous tissue. Once we obtained access to the fibula we carefully dissected along the fibula until we were able to identify the fracture. Once identified the fracture we cleaned up the fracture hematoma using copious amounts of irrigation. Once this was done reduction clamps were used to reduce the fracture. Once fracture was reduced live x-ray was used to verify fracture reduction in coronal and sagittal planes. Once we are happy with this a 3.5 mm lag screw was placed atopy with leg screw by technique procedure. Once this was done clamps were removed and a lateral plate was selected. A 6 hole plate was appropriate for length to give us an appropriate number of cortices proximally distally to the fracture. 2 screws were used to provisionally placed the plate and live x-rays used to verify fracture reduction was maintained and plate placement is appropriate. Once this was completed 1 additional cortical screw was placed proximally and 1 locking screws placed proximally along with 3 locking screws distally. Once this was completed live x-rays to verify plate placement and fracture reduction remained stable and screws were of appropriate length. Once was done mortise view was obtained with external rotation stressing the syndesmosis joint. This was done under live x-ray. X-rays were interpreted intraoperatively and the patient was found to have a stable mortise. Once this was completed the wound was copiously irrigated out with normal saline under low-pressure lavage. Fascia was closed over the plate. There was about 2 cm distally where fascia could not be closed over the plate. Skin was closed using 2-0 Vicryl final skin closure was done with 3 oh barbed Monocryl. Steri-Strips were placed. Sterile dressing was placed. Tourniquet was let down after compressive dressing was placed. Patient was placed in a posterior splint. Patient was waken anesthesia and transferred PACU for recovery in stable condition. Postop plan: Aspirin 81 mg p.o. twice daily for 2 weeks for DVT prophylaxis Nonweightbearing for 6 weeks Splint for 2 weeks After removal of splint transition patient to boot and allow range of motion exercises Surgical Findings: Stable will reduce fracture Complications Complications: No Admit VTE Documentation VTE Present on Admission: No VTE Mechan Device Prophylaxis: SCD's and Thigh High BANDAR Hose VTE Pharm Prophylaxis ordered?: Yes
--- NOTE | 2025-07-12 14:01 | PCM.POST.ANE ---
Anesthesia: Postop Eval I Current Vital Signs Temperature: 97.0 F Pulse Rate: 88 Blood Pressure: 126/85 Respiratory Rate: 20 Pulse Ox: 96 Oxygen Delivery Method: Room Air Assessment Airway patent: Yes Spontaneous unlabored respirations: Yes Mental status: Awake and Calm nausea: No Vomiting: No Anesthesia Complication: No Fluid Hydration Crystalloid volume administer (ml): 1,100 Total IV fluid infused: 1,100 Progress Note Anesthesia document: Postop Eval 1 completed: Yes
--- NOTE | 2025-07-12 15:10 | RAD_ITS ---
PROCEDURE: ANKLE 2 VIEWS 07/12/2025 REASON FOR EXAM: FRX TECHNIQUE: Procedure Code: RADANK2 Modality: DX Procedure: ANKLE 2 VIEWS Laterality: Right COMPARISON: None. FINDINGS: BONES: Status post ORIF with lateral plate and screw fixation hardware bridging the distal fibular fracture, which is in anatomic alignment. JOINTS: No dislocation. The joint spaces are preserved. SOFT TISSUES: Soft tissue swelling is noted. RAD/Ankle 2 Views IMPRESSION: Postoperative changes status post distal fibular ORIF. Reading Location: [id number]
--- NOTE | 2025-07-12 15:43 | POSTOPAN2_ITS ---
Anesthesia Postop Eval I Sum Postop Eval Completion status Anesthesia document: Postop Eval 1 completed: Yes Anesthesia Postop Eval I Summary Anesthesia Postop Eval I Summary: Anesthesia Postop Eval I: Assessment Summary Airway patent Yes 07/12/25 14:02 LIFTS AND CRANES [email or web address].[email or web address] Spontaneous unlabored Yes 07/12/25 14:02 LIFTS AND CRANES INSPECTOR.[email or web address] respirations Mental status Awake,Calm 07/12/25 14:02 LIFTS AND CRANES INSPECTOR.PKEL nausea No 07/12/25 14:02 LIFTS AND CRANES INSPECTOR.[email or web address] Vomiting No 07/12/25 14:02 LIFTS AND CRANES INSPECTOR.[email or web address] Anesthesia Postop Eval I: Fluid Summary Crystalloid volume administer 1,100 07/12/25 14:02 LIFTS AND CRANES INSPECTOR.[email or web address] (ml) Colloids volume administered ( ml) Blood Product volume administered (ml) Total IV fluid infused 1,100 07/12/25 14:02 LIFTS AND CRANES INSPECTOR.PKEL Anesthesia Postop Eval I: Summary Notes Anesthesia Complication No 07/12/25 14:02 LIFTS AND CRANES [email or web address].[email or web address] Anesthesia Complication Comment: Post-operative progress note Anesthesia: Postop Eval II Evaluation Mental status: Awake and Calm Pain Level: 1 nausea: No Vomiting: No Complications Anesthesia Complication: No
--- NOTE | 2025-07-12 15:43 | PCM.POSTANE2 ---
Anesthesia Postop Eval I Sum Postop Eval Completion status Anesthesia document: Postop Eval 1 completed: Yes Anesthesia Postop Eval I Summary Anesthesia Postop Eval I Summary: Anesthesia Postop Eval I: Assessment Summary Airway patent Yes 07/12/25 14:02 [employer]CING [email or web address] Spontaneous unlabored Yes 07/12/25 14:02 [email or web address] respirations Mental status Awake,Calm 07/12/25 14:02 [employer]CING [email or web address] nausea No 07/12/25 14:02 S[employer]CING [email or web address] Vomiting No 07/12/25 14:02 S[employer]CING [email or web address] Anesthesia Postop Eval I: Fluid Summary Crystalloid volume administer 1,100 07/12/25 14:02 [email or web address] (ml) Colloids volume administered ( ml) Blood Product volume administered (ml) Total IV fluid infused 1,100 07/12/25 14:02 [email or web address] Anesthesia Postop Eval I: Summary Notes Anesthesia Complication No 07/12/25 14:02 [email or web address] Anesthesia Complication Comment: Post-operative progress note Anesthesia: Postop Eval II Evaluation Mental status: Awake and Calm Pain Level: 1 nausea: No Vomiting: No Complications Anesthesia Complication: No
== END 2025-07-12 15:50 | disposition home or self-care (01) ==
LOC: SDC 10:31 → AC 10:32
PROVIDERS: Referring Provider Specialist; Visit Provider Specialist
PROC: (CPT 27792; principal; 2025-07-12 12:10)
DX: S82.831A Other fracture of upper and lower end of right fibula, initial encounter for closed fracture (principal); W10.9XXA Fall (on) (from) unspecified stairs and steps, initial encounter; I10 Essential (primary) hypertension; K21.9 Gastro-esophageal reflux disease without esophagitis; Z79.899 Other long term (current) drug therapy; Z87.891 Personal history of nicotine dependence
CPT/HCPCS: 27792; 01480; 64450; 36415; 73600; 76000; 80048; 85025; 93005; C1713; J2405